=== PATIENT | female | born 2000 | race Two or more races ===

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

== ENCOUNTER 2021-01-26 12:29 | Inpatient (IN) | payer BC ==
[~2021-01-26] VITALS: Ht 160 cm; Wt 87.2 kg
[~2021-01-26 12:29] MED LIST: BUPR75 PO
[2021-01-26 15:59] LABS: BASOPHILS % (AUTO) 0.5 % (0.0-2.0); EOSINOPHILS % (AUTO) 0.2 % (1.0-6.0); HEMATOCRIT 42.8 % (36-46); HEMOGLOBIN 14.4 g/dL (12.0-16.0); LYMPHOCYTES % (AUTO) 16.2 % (22.0-44.0); MEAN CORPUSCULAR HEMOGLOBIN 29.2 pg (26.0-34.0); MEAN CORPUSCULAR HGB CONC 33.7 G/dL (31.0-37.0); MEAN CORPUSCULAR VOLUME 87 fL (80-100); MONOCYTES # (AUTO) 0.7 K/uL (0.1-1.0); MONOCYTES % (AUTO) 5.8 % (2.0-9.0); NEUTROPHILS # (AUTO) 9.5 K/uL (1.8-7.7); NEUTROPHILS % (AUTO) 77.3 % (40.0-70.0); PLATELET COUNT (AUTO) 371 K/uL (150-450); RED BLOOD CELL COUNT(AUTO) 4.94 MIL/uL (4.00-5.20)
[2021-01-26 16:19] LABS: ANION GAP 9 mmol/L (8-16); CALCIUM, TOTAL 8.8 mg/dL (8.8-10.5); CARBON DIOXIDE 28 mmol/L (22-29); CHLORIDE 105 mmol/L (98-107); CREATININE 0.83 mg/dL (0.60-1.30); GLOMERULAR FILTR. RATE CALC > 60 mL/min (>60); GLUCOSE,RANDOM 87 mg/dL (70-110); SODIUM SERUM 142 mmol/L (136-145); UREA NITROGEN, BLOOD 9 mg/dL (7-18)
[2021-01-26 16:27] LABS: ALANINE AMINOTRANSFERASE 21 U/L (12-78); ALBUMIN 3.6 g/dL (3.4-5.0); ALKALINE PHOSPHATASE 79 U/L (46-116); ASPARTATE AMINOTRANSFERASE 18 U/L (15-37); BILIRUBIN,TOTAL 0.3 mg/dL (0.1-1.0); TOTAL PROTEIN, SERUM 7.7 g/dL (6.4-8.2)
[2021-01-26 16:29] LABS: AMPHET/METH SCREEN,URINE NEGATIVE (NEGATIVE); BARBITURATE SCREEN, URINE NEGATIVE (NEGATIVE); BENZODIAZEPINES SCREEN,URINE NEGATIVE (NEGATIVE); CANNABINOID SCREEN,URINE NEGATIVE (NEGATIVE); COCAINE SCREEN,URINE NEGATIVE (NEGATIVE); METHADONE SCREEN, URINE NEGATIVE (NEGATIVE); OPIATE SCREEN,URINE NEGATIVE (NEGATIVE); PHENCYCLIDINE SCREEN,URINE NEGATIVE (NEGATIVE)
[2021-01-26] MEDS ORDERED: HALOPERIDOL 5 MG TABLET PO PRN (19:00)
[2021-01-26] MEDS ORDERED: LORazepam 2 MG TABLET PO PRN (19:00)
[2021-01-26 19:36] LABS: COVID AG,FIA SOURCE NASOPHARYNGEAL
[2021-01-27 01:52] VITALS: BP 102/67
[2021-01-27] MEDS: ZOLPIDEM TARTRATE 10 MG TABLET PO PRN (01:56)
[2021-01-27] MEDS ORDERED: MAGNESIUM HYDROXIDE SUSPENSION 30 ML UDCUP PO PRN (07:45)
[2021-01-27] MEDS ORDERED: PETROLATUM,WHITE 28 GM JELLY TP PRN (07:45)
[2021-01-27] MEDS ORDERED: CloNIDine HCL 0.1 MG TABLET PO PRN (07:45)
[2021-01-27] MEDS ORDERED: ONDANSETRON HCL 4 MG TABLET PO PRN (07:45)
[2021-01-27] MEDS ORDERED: IBUPROFEN 400 MG TABLET PO PRN (07:45)
[2021-01-27] MEDS ORDERED: MAG HYDROX/AL HYDROX/SIMETH ES 30 ML SUSPENSION UDCUP PO PRN (07:45)
[2021-01-27] MEDS ORDERED: ACETAMINOPHEN 325 MG TABLET PO PRN (07:45)
[2021-01-27] MEDS ORDERED: NICOTINE 14 MG/24 HOUR PATCH TD PRN (07:45)
[2021-01-27] MEDS ORDERED: DOCUSATE SODIUM 100 MG CAPSULE PO PRN (07:45)
[2021-01-27] MEDS ORDERED: ALBUTEROL SULFATE HFA 90 MCG/PUFF 8 GM INHALER IH PRN (07:45)
[2021-01-27] MEDS ORDERED: GuaiFENesin/D-METHORPHAN [SUGAR-FREE] 200-20MG/10 ML SYRUP UDCUP PO PRN (07:45)
[2021-01-27] MEDS ORDERED: LOPERAMIDE HCL 2 MG CAPSULE PO PRN (07:45)
[2021-01-27 08:31] VITALS: BP 106/53
[2021-01-27 16:18] VITALS: BP 100/62
[2021-01-27] MEDS: LURASIDONE HCL 40 MG TABLET PO SCH (16:46)
[2021-01-28 05:40] VITALS: BP 105/56
[2021-01-28 08:55] VITALS: BP 118/81
[2021-01-28] MEDS: BuPROPion HCL XL 150 MG ER TABLET PO SCH (09:14)
[2021-01-28 16:23] VITALS: BP 121/69
[2021-01-28] MEDS: LURASIDONE HCL 40 MG TABLET PO SCH (16:32)
[2021-01-28] MEDS: ZOLPIDEM TARTRATE 10 MG TABLET PO PRN (20:32)
[2021-01-29 01:24] VITALS: BP 114/67
[2021-01-29] MEDS: BuPROPion HCL XL 150 MG ER TABLET PO SCH (08:31)
[2021-01-29 09:35] VITALS: BP_SYST 98; BP_DIAS 44; BP_DIAS 48
[2021-01-29 09:37] VITALS: BP 124/68
[2021-01-29] MEDS ORDERED: LURA40TA2 PO (12:26)
[2021-01-29] MEDS ORDERED: BUPR-93 PO (12:26)
== END 2021-01-29 15:44 | disposition home or self-care (01) | DRG 885 ==
LOC: EMS 12:31 → B2S 20:00
DX: F33.2 Major depressive disorder, recurrent severe without psychotic features (principal); R45.851 Suicidal ideations; Z91.5 Personal history of self-harm; E66.9 Obesity, unspecified; Z68.34 Body mass index [BMI] 34.0-34.9, adult; I95.9 Hypotension, unspecified; D72.829 Elevated white blood cell count, unspecified; R45.850 Homicidal ideations; F41.9 Anxiety disorder, unspecified; Z20.822 Contact with and (suspected) exposure to COVID-19
CPT/HCPCS: 80053; 85025; 99285; G0480